=== PATIENT | female | born 1950 | race Caucasian/White ===

== ENCOUNTER → 2017-05-04 | Outpatient (CLI) | payer MEDICARE, OTHER ==
[2015-02-06 11:08] VITALS: BP 128/53
[~2017-05-04] MED LIST: ACET325T9 PO; ALBU8.5H8 IH; ALPR0.5T6 PO; BACL10TA PO; BUPR1PAT8 TP; CRAN450T3 PO; DEXT1CAP PO; DICL100G18 TP; DULO60CA6 PO; ESTR42.53 VG; GABA600T2 PO; HYDR-971 PO; LISI10TA2 PO; METF500T4 PO; ONDA4TAB7 PO; POLY17PO5 PO; PRAV80TA2 PO; [UNRECOGNIZED DRUG - CODE] PO
== END | disposition home or self-care (01) ==
LOC: OPS 13:26
PROVIDERS: ATTEND Internal Medicine
DX: Z53.21 Procedure and treatment not carried out due to patient leaving prior to being seen by health care provider (principal)